=== PATIENT | male | born 1955 | race Caucasian/White ===

== ENCOUNTER 2018-04-05 09:27 | Observation (INO) | payer BC ==
[2018-04-05 10:06] LABS: Basophils % (A) 0 %; Eosinophils # (A) 0.2 k/uL (0-0.7); Eosinophils % (A) 3 %; HCT 50.8 % (39.0-53.0); HGB 17.3 gm/dL (13.0-17.5); Lymphocytes # (A) 1.4 k/uL (1.0-4.8); Lymphocytes % (A) 20 %; MCH 31.8 pg (25.0-35.0); MCV 93.6 fL (80.0-100.0); Mean Platelet Volume 8.1; Monocytes # (A) 0.5 k/uL (0-1.0); Monocytes % (A) 7 %; Neutrophils # (A) 4.7 k/uL (1.3-7.7); Neutrophils % (A) 68 %; Platelet Count 178 k/uL (150-450); RBC 5.43 m/uL (4.30-5.90); RDW 13.1 % (11.5-15.5); WBC 6.9 k/uL (3.8-10.6)
[2018-04-05] MEDS ORDERED: IPRATROPIUM-ALBUTEROL 3 ML NEB INHALATION STA (10:11)
[2018-04-05 10:15] LABS: ALT 89 U/L (21-72); AST 66 U/L (17-59); Albumin 4.5 g/dL (3.5-5.0); Alkaline Phosphatase 65 U/L (38-126); Anion Gap 9 mmol/L; Blood Urea Nitrogen 5 mg/dL (9-20); Calcium 9.3 mg/dL (8.4-10.2); Carbon Dioxide 26 mmol/L (22-30); Chloride 106 mmol/L (98-107); Glucose 106 mg/dL (74-99); Sodium 141 mmol/L (137-145); Total Bilirubin 1.2 mg/dL (0.2-1.3); Total Protein 7.8 g/dL (6.3-8.2)
--- NOTE | 2018-04-05 10:25 | ED ---
Chest Pain HPI - General Chief Complaint: Chest Pain Stated Complaint: chest pain, abnormal ekg Time Seen by Provider: 04/05/18 09:43 Source: patient, RN notes reviewed Mode of arrival: ambulatory Limitations: no limitations - History of Present Illness Initial Comments: This a 62-year-old male with a history of COPD who is a 1 pack-a-day smoker who was sent here for evaluation because of an abnormal EKG. Patient states he's been having sharp chest pain 8/10 severity increases with deep breathing and certain movements no cough no fevers chills nausea vomiting sweats or other symptoms. He was seen in his doctor's office and sent here again for evaluation. He was given 4 baby aspirin is at 905 this morning in the office. MD Complaint: chest pain, other - Related Data Home Medications Medication Instructions Recorded Confirmed Aspirin EC [Ecotrin] 325 mg PO DAILY PRN 04/05/18 04/05/18 Allergies Allergy/AdvReac Type Severity Reaction Status Date / Time Penicillins Allergy Unknown Verified 04/05/18 10:08 Childhood Review of Systems ROS Statement: Those systems with pertinent positive or pertinent negative responses have been documented in the HPI. ROS Other: All systems not noted in ROS Statement are negative. EKG Findings - EKG Results: EKG: interpreted by KIRA, sinus rhythm (Sinus rhythm of 93. Interval 150 QRS duration 92 QT since QTC 356/442 this compares with the EKG submitted from the patient's physician office.) Past Medical History Past Medical History: COPD History of Any Multi-Drug Resistant Organisms: None Reported Additional Past Surgical History / Comment(s): LEFT ARM SURGICAL DEBRIDEMENT 08/18 FROM SANDBLASTING INJURY Past Anesthesia/Blood Transfusion Reactions: No Reported Reaction Past Psychological History: No Psychological Hx Reported Smoking Status: Current every day smoker Past Alcohol Use History: Daily Past Drug Use History: None Reported - Past Family History Mother Family Medical History: Hypertension Father Family Medical History: Coronary Artery Disease (CAD) General Exam - General Exam Comments Initial Comments: This is a well little pulmonary awake alert oriented 3 male Limitations: no limitations General appearance: alert, in no apparent distress Head exam: Present: atraumatic, normocephalic, normal inspection Eye exam: Present: normal appearance, PERRL, EOMI. Absent: scleral icterus, conjunctival injection, periorbital swelling ENT exam: Present: normal exam, mucous membranes moist Neck exam: Present: normal inspection, full ROM, other (No stridor JVD or bruits ). Absent: tenderness, meningismus, lymphadenopathy Respiratory exam: Present: wheezes, decreased breath sounds. Absent: respiratory distress, rales, rhonchi, stridor, chest wall tenderness Cardiovascular Exam: Present: regular rate, normal rhythm, normal heart sounds. Absent: systolic murmur, diastolic murmur, rubs, gallop, clicks GI/Abdominal exam: Present: soft, normal bowel sounds. Absent: distended, tenderness, guarding, rebound, rigid Extremities exam: Present: normal inspection, full ROM, normal capillary refill. Absent: tenderness, pedal edema, joint swelling, calf tenderness Back exam: Present: normal inspection Neurological exam: Present: alert, oriented X3, CN II-XII intact Psychiatric exam: Present: normal affect, normal mood Skin exam: Present: warm, dry, intact, normal color. Absent: rash Course Vital Signs 04/05/18 04/05/18 04/05/18 09:29 09:42 09:50 Temperature 98.3 F Pulse Rate 109 H 86 Respiratory 20 Rate Blood Pressure 167/104 155/92 O2 Sat by Pulse 99 95 93 L Oximetry 04/05/18 04/05/18 04/05/18 10:36 10:47 11:00 Temperature Pulse Rate 70 90 90 Respiratory 18 Rate Blood Pressure 133/95 O2 Sat by Pulse 97 Oximetry 04/05/18 04/05/18 04/05/18 12:00 12:11 13:00 Temperature Pulse Rate 81 80 77 Respiratory 16 18 16 Rate Blood Pressure 143/80 130/81 140/86 O2 Sat by Pulse 96 96 95 Oximetry 04/05/18 13:50 Temperature Pulse Rate 79 Respiratory 16 Rate Blood Pressure 143/87 O2 Sat by Pulse 95 Oximetry - Reevaluation(s) Reevaluation #1: 04/05/18 14:11 (Some relief from nitroglycerin. He started having increasing pain he repeat EKG was performed which showed sinus rhythm with PACs rate was 83 para 140 QRS duration 98 QT since QTC 396/465 Chest Pain [facility] - [facility] The patient's x-ray was reviewed no acute findings seen. The patient persisted having chest pain that seemed to prove after nitroglycerin. Patient will be admitted for inpatient treatment. I did discuss case with Dr. Portillo Critical Care Time Critical Care Time: Yes Critical Care Time: 31 minutes critical care time which includes initial presentation with history physical labs x-rays reevaluation patient responsive therapy discuss with the admitting physician admission orders and documentation of the above Disposition Clinical Impression: Unstable angina pectoris, Chest pain Disposition: ADMITTED IP TO THIS [facility] Condition: Stable Referrals: Raffy Mcfadden MD [Primary Care Provider] - 1-2 days
[2018-04-05 10:26] LABS: Partial Thromboplastin Time 24.5 sec (22.0-30.0)
--- NOTE | 2018-04-05 10:26 | XR ---
EXAMINATION TYPE: XR chest 2V DATE OF EXAM: 04/05/2018 COMPARISON: None INDICATION: Chest pain TECHNIQUE: Frontal and lateral views of the chest are obtained. FINDINGS: The heart size is normal. The pulmonary vasculature is normal. There are multiple scattered nodularities the bilateral lung campa. Granuloma could be considered. O ther etiologies including infectious etiologies, and metastatic disease could be considered. Consider CT chest for additional evaluation.. IMPRESSION: 1. No acute process identified. 2. Multiple subcentimeter nodularities in the bilateral lung campa. Consider follow-up CT chest for additional evaluation. Differential diagnosis is discussed above.
[2018-04-05 10:31] LABS: D-Dimer 0.93 mg/L FEU (<0.60)
[2018-04-05 10:35] LABS: Creatine Kinase 49 U/L (55-170)
[2018-04-05 10:48] LABS: Creatine Kinase MB <0.2 ng/mL (0.0-2.4); Troponin I <0.012 ng/mL (0.000-0.034)
--- NOTE | 2018-04-05 12:15 | CT ---
EXAMINATION TYPE: CT angio chest DATE OF EXAM: 04/05/2018 COMPARISON: NONE HISTORY: Chest pain CT DLP: 409.3 mGycm. Automated Exposure Control for Dose Reduction was Utilized. CONTRAST: CTA scan of the thorax is performed with IV Contrast, patient injected with 100 mL of Isovue 370, pul monary embolism protocol. MIP Images are created on CT scanner and reviewed. FINDINGS: LUNGS: There are innumerable punctate calcified pulmonary nodules throughout the lungs without solid component. The lungs are grossly clear, there is no concerning parenchymal mass or nodule identified. Mild emphysematous changes are present. There is no pleural effusion or pneumothorax seen. The tr acheobronchial tree is patent. MEDIASTINUM: There is suboptimal enhancement of the pulmonary artery and its branches, however there is no CT evidence for main pulmonary artery or segmental pulmonary embolism. There is no evidence of thoracic aortic aneurysm as the ascending thoracic aorta measures 3.8 cm. No evidence of thoracic aor tic dissection however there are numerous penetrating atheromatous ulcers within the aortic arch and descending thoracic aorta. There is aneurysmal dilatation of the aortic root measuring 4.4 cm on sagi ttal series 402 image 70. Mild coronary artery calcifications are seen There are no greater than 1 cm hilar or mediastinal lymph nodes. Calcified additional lymph nodes are seen. No cardiomegaly or pe ricardial effusion is seen. OTHER: Evaluation of the abdominal viscera is limited secondary to the angiographic phase of contrast . Benign splenic granulomas are seen. Moderate multilevel degenerative changes of the spine are prese nt. IMPRESSION: 1. Overall there is suboptimal opacification of the main pulmonary artery there is no evidence of brock tral or segmental pulmonary embolus. No evidence of thoracic aortic aneurysm or dissection. Multiple penetrating atheromatous ulcers are seen of the descending thoracic aorta and aortic arch due to nonc alcific atheromatous plaquing. 2. Innumerable calcified pulmonary nodules are likely on the basis of benign granulomatous change alt gloria could be seen in other calcified etiologies such as prior varicella pneumonia. 3. Aortic root aneurysmal dilatation measuring up to 4.4 cm. 4. Mild pulmonary emphysema.
[2018-04-05] MEDS ORDERED: NITROGLYCERIN SL TABS 0.4 MG TAB SUBLINGUAL STA (12:56)
[2018-04-05] MEDS ORDERED: HEPARIN SODIUM,PORCINE 5,000 UNIT/ML 1 ML VIAL IV ONE (14:08)
[2018-04-05] MEDS ORDERED: NITROGLYCERIN SL TABS 0.4 MG TAB SUBLINGUAL PRN (14:08)
[2018-04-05] MEDS ORDERED: HEPARIN SOD,PORK IN 0.45% NACL 25,000 UNIT in 0.45% NACL 1 250ML.BAG IV SCH (14:15)
[2018-04-05] MEDS ORDERED: SODIUM CHLORIDE 0.9% 1,000 ML IV SCH (14:15)
[2018-04-05] MEDS: NITROGLYCERIN OINT 1 INCH/GM PACKET TOPICAL SCH ×2 (15:00→23:10)
[2018-04-05] MEDS ORDERED: ACETAMINOPHEN TAB 325 MG TAB PO PRN (15:12)
[2018-04-05] MEDS ORDERED: amLODIPine 10 MG TAB PO STA (15:14)
[2018-04-05 15:26] VITALS: BMI 30.2
--- NOTE | 2018-04-05 15:28 | P.HPIM ---
History of Present Illness H&P Date: 04/05/18 Chief Complaint: Chest pain The patient is a pleasant 62-year-old male the past with a history of COPD with ongoing tobacco use that presents to the ER via private vehicle with chief complaint of chest pain. Apparently the patient's symptoms began yesterday with discomfort in the epigastric area and substernally rated as severe associated shortness of breath and worsened by taking deep breaths, the patient also reports is worsened by certain movements like going from a recumbent to sitting up position, other than shortness of breath the patient has no associated nausea vomiting, or diaphoresis, palpitations, or lower extremity swelling. The patient reports a chronic cough and wheezes which he attributes to his COPD. The patient presented to his PCPs office with the above complaints was given 4 baby aspirin and referred to the ER. Patient reports that his symptoms started like when he has acid reflux flares but has since persisted. This patient also denies any specific correlation with the symptoms with exertion or food. The patient does report to drinking approximately 8 beers daily but denies any hard core liquor use. Patient denies any history of hypertension but reports that his diastolic Bp is usually running around 90, denies previous being on any blood pressure medications. In the ER the patient had a comprehensive workup he was given nitroglycerin but denies any improvement in symptoms, and started on a heparin drip. His EKG showed sinus mechanism without any suggestion of acute ischemia as troponins was negative. His d-dimer was elevated and subsequent CTA of the chest was negative for PE, but was consistent with multiple calcified pulmonary nodules. Review of Systems Pertinent positives per HPI all other systems are otherwise negative Past Medical History Past Medical History: COPD History of Any Multi-Drug Resistant Organisms: None Reported Additional Past Surgical History / Comment(s): LEFT ARM SURGICAL DEBRIDEMENT 08/18 FROM SANDBLASTING INJURY Past Anesthesia/Blood Transfusion Reactions: No Reported Reaction Past Psychological History: No Psychological Hx Reported Smoking Status: Current every day smoker Past Alcohol Use History: Daily Past Drug Use History: None Reported - Past Family History Mother Family Medical History: Hypertension Father Family Medical History: Coronary Artery Disease (CAD) Medications and Allergies Home Medications Medication Instructions Recorded Confirmed Type Aspirin EC [Ecotrin] 325 mg PO DAILY PRN 04/05/18 04/05/18 History Allergies Allergy/AdvReac Type Severity Reaction Status Date / Time Penicillins Allergy Unknown Verified 04/05/18 10:08 Childhood Physical Exam Vitals: Vital Signs Temp Pulse Resp BP Pulse Ox 04/05/18 13:50 79 16 143/87 95 04/05/18 13:00 77 16 140/86 95 04/05/18 12:11 80 18 130/81 96 04/05/18 12:00 81 16 143/80 96 04/05/18 11:00 90 18 133/95 97 04/05/18 10:47 90 04/05/18 10:36 70 04/05/18 09:50 86 155/92 93 L 04/05/18 09:42 95 04/05/18 09:29 98.3 F 109 H 20 167/104 99 Intake and Output 04/05/18 04/05/18 04/05/18 06:59 14:59 22:59 Other: Weight 92.986 kg Constitutional: No acute distress, conversant, pleasant Eyes: Anicteric sclerae, moist conjunctiva, no lid-lag, PERRLA ENMT: NC/AT,Oropharynx clear, no erythema, exudates Neck:Supple, FROM, no masses, or JVD, No carotid bruits; No thyromegaly Lungs: Clear to auscultation, Clear to percussion, Normal respiratory effort, no accessory muscle use Cardiovascular: Heart regular in rate and rhythm, No murmurs, gallops, or rubs no peripheral edema Abdominal: Soft Nontender, nom distended, no guarding, no rebound or rigidity, Normoactive bowel sounds No hepatomegaly, No splenomegaly, No palpable mass No abdominal wall hernia noted Skin: Normal temperature, tone, texture, turgor, No induration No subcutaneous nodules, No rash, lesions, No ulcers Extremities:No digital cyanosis No clubbing, Pedal pulses intact and symmetrical Radial pulses intact and symmetrical Normal gait and station, No calf tenderness Psychiatric: Alert and oriented to person, place and time, Appropriate affect Intact judgement Neuro: Muscles Strength 5/5 in all 4 extremities, Sensation to light touch grossly present throughout, Cranial nerves II-XII grossly intact. No focal sensory deficits Results CBC & Chem 7: 04/05/18 09:42 04/05/18 09:42 Labs: Abnormal Lab Results - Last 24 Hours (Table) 04/05/18 04/05/18 04/05/18 Range/Units 09:42 09:42 09:42 D-Dimer 0.93 H (<0.60) mg/L FEU BUN 5 L (9-20) mg/dL Glucose 106 H (74-99) mg/dL AST 66 H (17-59) U/L ALT 89 H (21-72) U/L Total Creatine Kinase 49 L (55-170) U/L Assessment and Plan (1) Atypical chest pain Current Visit: Yes Status: Acute Code(s): R07.89 - OTHER CHEST PAIN SNOMED Code(s): 337334661 (2) Essential hypertension Current Visit: Yes Status: Acute Code(s): I10 - ESSENTIAL (PRIMARY) HYPERTENSION SNOMED Code(s): 03959331 (3) COPD (chronic obstructive pulmonary disease) Current Visit: Yes Status: Acute Code(s): J44.9 - CHRONIC OBSTRUCTIVE PULMONARY DISEASE, UNSPECIFIED SNOMED Code(s): 30359306 (4) Smoker Current Visit: Yes Status: Acute Code(s): F17.200 - NICOTINE DEPENDENCE, UNSPECIFIED, UNCOMPLICATED SNOMED Code(s): 86185753 (5) Transaminitis Current Visit: Yes Status: Acute Code(s): R74.0 - NONSPEC ELEV OF LEVELS OF TRANSAMNS & LACTIC ACID DEHYDRGNSE SNOMED Code(s): 788030333 (6) Alcohol dependence Current Visit: Yes Status: Acute Code(s): F10.20 - ALCOHOL DEPENDENCE, UNCOMPLICATED SNOMED Code(s): 43369266 (7) Pulmonary nodules/lesions, multiple Current Visit: Yes Status: Acute Code(s): R91.8 - OTHER NONSPECIFIC ABNORMAL FINDING OF LUNG FIELD SNOMED Code(s): 328842206 Plan: Patient is placed on observation anticipated less than 2 midnight stay with atypical chest pain EKG showing sinus mechanism without any signs of acute ischemia troponin was negative trend troponins and continue routine chest pain orders the patient is continued on aspirin and heparin drip initiated on metoprolol and lisinopril to control his blood pressure. 2-D echocardiogram has been ordered with plans for cardiology consultation. The patient noted to have a mild transaminitis, hepatitis panel and right upper quadrant ultrasound ordered, likely has alcoholic hepatitis versus fatty liver we'll follow-up ultrasound and recommendations from cardiology and pulmonology. We will continue to follow his clinical course CODE STATUS Full code Anticipated discharge: 1-2 days Prophylaxis: Heparin drip/ Protonix
[2018-04-05 17:27] LABS: Creatine Kinase 40 U/L (55-170)
[2018-04-05 17:40] LABS: Creatine Kinase MB <0.2 ng/mL (0.0-2.4); Troponin I <0.012 ng/mL (0.000-0.034)
[2018-04-05] MEDS ORDERED: METOPROLOL TARTRATE 25 MG TAB PO SCH (21:00)
[2018-04-05 21:25] LABS: Creatine Kinase 39 U/L (55-170)
[2018-04-05 21:37] LABS: Creatine Kinase MB <0.2 ng/mL (0.0-2.4); Troponin I <0.012 ng/mL (0.000-0.034)
[2018-04-05] MEDS ORDERED: HEPARIN SODIUM,PORCINE 5,000 UNIT/ML 1 ML VIAL IV PRN (22:37)
[2018-04-06 06:10] LABS: Cholesterol 142 mg/dL (<200); HDL Cholesterol 50 mg/dL (40-60); LDL Cholesterol,Calculated 73 mg/dL (0-99); Triglycerides 93 mg/dL (<150)
[2018-04-06] MEDS: NITROGLYCERIN OINT 1 INCH/GM PACKET TOPICAL SCH (06:15)
--- NOTE | 2018-04-06 07:38 | US ---
EXAMINATION TYPE: US abdomen limited DATE OF EXAM: 04/06/2018 COMPARISON: CT angio chest CLINICAL HISTORY: Pain r/o acute cholecystitis/high LFTs. Patient stated had chest pains EXAM MEASUREMENTS: Liver Length: 18.4 cm Gallbladder Wall: 0.2 cm CBD: 0.4 cm Right Kidney: 10.3 x 5.4 x 4.7 cm Pancreas: wnl Liver: hyperechoic to right renal cortex suggests fatty liver Gallbladder: wnl Evidence for sonographic Peters's sign: no CBD: wnl Right Kidney: wnl IMPRESSION: 1. Hepatic steatosis.
[2018-04-06] MEDS ORDERED: AZITHROMYCIN 500 MG TAB PO SCH (09:00)
[2018-04-06] MEDS ORDERED: ASPIRIN 325 MG TAB PO SCH (09:00)
[2018-04-06] MEDS ORDERED: LISINOPRIL 10 MG TAB PO SCH (09:00)
--- NOTE | 2018-04-06 09:55 | P.CNPUL ---
History of Present Illness Consult date: 04/06/18 Requesting physician: Vickie Portillo Reason for consult: dyspnea, chest pain Chief complaint: Chest pain, mild dyspnea History of present illness: This is 62-year-old white male patient of Dr. Mcfadden, was presented to the emergency department on 04/05/2018, with past medical history of COPD, not oxygen dependent at baseline, hypertention, chronic nicotine dependence. Patient is complaining of pressure-like chest discomfort across has sternum, patient did have some mild shortness of breath, not associated with nausea, vomiting, diaphoresis. No lightheadedness, no palpitations. The chest discomfort was described as pressure, 8 out of 10, and was more towards the right side Of the sternum. It was worse with lying on the left side, and coughing and deep breathing. Denied any fever or chills. No cough or chest congestion. He does not see a online marketing specialist, he used to have an inhaler , he does not recall the name. He was told in the past she had COPD. 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 On presentation to the emergency department she was given 4 baby aspirins, and a sublingual nitro with no improvement of his symptoms. States his chest discomfort lasted for a whole day, constant in nature. Denies any history of prior myocardial infarction, no history of diabetes, no hyperlipidemia. Chest x-ray did not show any acute process, which showed multiple subcentimeter nodularities in the bilateral lung campa. CT angios chest was negative for any acute pulmonary embolism, it showed numerous punctate calcified pulmonary nodules throughout the lungs without solid component. Mild emphysematous changes were seen. There were no greater than 1 cm hilar or mediastinal lymph nodes, and calcified additional lymph nodes were seen within the mediastinum. There was aortic root aneurysmal dilatation measuring up to 4.4 cm. EKG showed normal sinus rhythm without acute ischemic changes. Troponins were negative 3, there was no evidence of leukocytosis, electrolytes and renal profile were unremarkable, proBNP was within normal limits at 52. The rest to see this patient in evaluation for multiple calcified nodules seen in bilateral lungs on CTA chest. Review of Systems All systems: negative Constitutional: Denies chills, Denies fever Eyes: denies blurred vision, denies pain Ears, nose, mouth and throat: Denies headache, Denies sore throat Cardiovascular: Reports chest pain, Denies shortness of breath Respiratory: Denies cough Gastrointestinal: Denies abdominal pain, Denies diarrhea, Denies nausea, Denies vomiting Musculoskeletal: Denies myalgias Integumentary: Denies pruritus, Denies rash Neurological: Denies numbness, Denies weakness Psychiatric: Denies anxiety, Denies depression Endocrine: Denies fatigue, Denies weight change Past Medical History Past Medical History: COPD Additional Past Medical History / Comment(s): asthma as child History of Any Multi-Drug Resistant Organisms: None Reported Additional Past Surgical History / Comment(s): LEFT ARM SURGICAL DEBRIDEMENT 08/18 FROM SANDBLASTING INJURY Past Anesthesia/Blood Transfusion Reactions: No Reported Reaction Past Psychological History: No Psychological Hx Reported Smoking Status: Current every day smoker Past Alcohol Use History: Daily Past Drug Use History: None Reported - Past Family History Mother Family Medical History: Hypertension Father Family Medical History: Coronary Artery Disease (CAD) Medications and Allergies Home Medications Medication Instructions Recorded Confirmed Type Aspirin EC [Ecotrin] 325 mg PO DAILY PRN 04/05/18 04/05/18 History Allergies Allergy/AdvReac Type Severity Reaction Status Date / Time Penicillins Allergy Unknown Verified 04/05/18 10:08 Childhood Physical Exam Vitals: Vital Signs Temp Pulse Pulse Pulse Resp BP BP 04/06/18 08:00 97.8 F 69 16 131/79 04/06/18 03:44 98.2 F 74 18 131/72 04/06/18 03:13 18 04/06/18 00:00 97.8 F 75 18 151/84 04/05/18 20:00 98.7 F 79 16 163/92 04/05/18 19:46 04/05/18 16:00 98.5 F 88 16 155/91 04/05/18 15:30 98.0 F 87 18 151/86 04/05/18 15:00 97.8 F 80 18 151/88 04/05/18 14:10 79 152/95 04/05/18 14:08 04/05/18 14:00 77 16 143/87 04/05/18 13:50 79 16 143/87 04/05/18 13:00 77 16 140/86 04/05/18 12:11 80 18 130/81 04/05/18 12:00 81 16 143/80 04/05/18 11:00 90 18 133/95 04/05/18 10:47 90 04/05/18 10:36 70 04/05/18 09:50 86 155/92 04/05/18 09:42 04/05/18 09:29 98.3 F 109 H 20 167/104 Pulse Ox 04/06/18 08:00 94 L 04/06/18 03:44 92 L 04/06/18 03:13 04/06/18 00:00 95 04/05/18 20:00 95 04/05/18 19:46 96 04/05/18 16:00 96 04/05/18 15:30 96 04/05/18 15:00 04/05/18 14:10 04/05/18 14:08 96 04/05/18 14:00 04/05/18 13:50 95 04/05/18 13:00 95 04/05/18 12:11 96 04/05/18 12:00 96 04/05/18 11:00 97 04/05/18 10:47 04/05/18 10:36 04/05/18 09:50 93 L 04/05/18 09:42 95 04/05/18 09:29 99 Intake and Output 04/05/18 04/06/18 04/06/18 22:59 06:59 14:59 Intake Total 78.667 Balance 78.667 Intake: Intake, IV Titration 78.667 Amount Heparin Sod,Pork in 0.45% 78.667 NaCl 25,000 unit In 0.45 % NaCl 1 250ml.bag @ 10. 755 UNITS/KG/HR 10 mls/hr IV .Q24H [facility] Rx#: [id number] Other: Voiding Method Toilet Toilet Toilet # Voids 1 2 GENERAL EXAM: Alert, pleasant, 62-year-old white male comfortable in no apparent distress. HEAD: Normocephalic/atraumatic. EYES: Normal reaction of pupils, equal size. Conjunctiva pink, sclera white. NOSE: Clear with pink turbinates. THROAT: No erythema or exudates. NECK: No masses, no JVD, no thyroid enlargement, no adenopathy. CHEST: No chest wall deformity. Symmetrical expansion. LUNGS: Equal air entry diffuse wheezes noted bilaterally CVS: Regular rate and rhythm, normal S1 and S2, no gallops, no murmurs, no rubs ABDOMEN: Soft, nontender. No hepatosplenomegaly, normal bowel sounds, no guarding or rigidity. EXTREMITIES: No clubbing, no edema, no cyanosis, 2+ pulses and upper and lower extremities. MUSCULOSKELETAL: Muscle strength and tone normal. SPINE: No scoliosis or deformity SKIN: No rashes CENTRAL NERVOUS SYSTEM: Alert and oriented -3. No focal deficits, tone is normal in all 4 extremities. PSYCHIATRIC: Alert and oriented -3. Appropriate affect. Intact judgment and insight. Results - Laboratory Findings CBC and BMP: 04/05/18 09:42 04/05/18 09:42 PT/INR, D-dimer PT 11.0 sec (9.0-12.0) 04/05/18 09:42 INR 1.0 (<1.2) 04/05/18 09:42 D-Dimer 0.93 mg/L FEU (<0.60) H 04/05/18 09:42 Abnormal lab findings: Abnormal Labs 04/05/18 04/05/18 04/05/18 09:42 09:42 09:42 APTT D-Dimer 0.93 H BUN 5 L Glucose 106 H AST 66 H ALT 89 H Total Creatine Kinase 49 L 04/05/18 04/05/18 04/05/18 16:25 20:59 20:59 APTT 33.8 H D-Dimer BUN Glucose AST ALT Total Creatine Kinase 40 L 39 L 04/06/18 05:29 APTT 60.5 H D-Dimer BUN Glucose AST ALT Total Creatine Kinase - Diagnostic Findings Chest x-ray: report reviewed, image reviewed CT scan - chest: report reviewed, image reviewed Assessment and Plan Plan: Assessment: #1. Pressure-like chest pain, exacerbated by deep breathing, and position. EKG was without any ischemic changes, serial cardiac enzymes were negative 3. Patient is awaiting evaluation by cardiology #2. Multiple calcified pulmonary nodules seen and bilateral lungs on the CTA chest, likely related to an old granulomatous disease #3. Acute exacerbation of chronic obstructive pulmonary disease #4. COPD, severity of which is unknown at this time, not oxygen dependent at this time #5. Elevated liver enzymes, ultrasound of the abdomen showed hepatic steatosis #6. Hypertension #7. Nicotine dependence, chronic and ongoing, carries 15-spam-xyea smoking history Plan: Patient is quite bronchospastic on today's exam, chest x-ray was negative for any acute process. CT changes chest was reviewed with Dr. Stone, showed multiple calcified pulmonary nodules likely related to an old granulomatous disease, not currently active. We'll treat the patient for acute exacerbation of COPD, added IV steroids, nebulized bronchodilators, and Zithromax. Patient is awaiting evaluation by cardiology. His chest pain has subsided, but has not resolved yet. We'll continue to follow I performed a history & physical examination of the patient and discussed their management with my nurse practitioner, Ariella Skinner. I reviewed the nurse practitioner's note and agree with the documented findings and plan of care. Lung sounds are positive for diffuse wheezes throughout the lung campa. The findings and the impression was discussed with the patient. I attest to the documentation by the nurse practitioner. Time with Patient: Greater than 30
--- NOTE | 2018-04-06 10:16 | P.CRDCN ---
History of Present Illness History of present illness: This is a pleasant 62-year-old male past medical history significant for COPD, chronic nicotine dependence and daily alcohol use. He denies history of coronary artery disease, hypertension and dyslipidemia and has never followed with a javascript engineer for any reason. We have been asked to see him in consultation for chest pain. He complains of a constant heavy burning sensation in the right anterior chest wall. He states this pain initially started while he was sitting down in his living room watching television and drinking a beer. The pain started all of a sudden and has been consistent for approximately 24 hours. The pain is worse when he takes in a deep breath or when he coughs excessively. He states he has a chronic daily dry cough for many years thought to be secondary to smoking. There has been no change in his cough recently. He denies associated shortness of breath, dizziness or palpitations. The pain does not radiate to the arm, back, neck or jaw. He initially presented to his primary care physician's office with these complaints and was sent to the hospital for further evaluation. EKG on arrival reveals sinus mechanism with no acute ST or T wave abnormalities noted. Repeat EKG reveals sinus mechanism with PACs. Chest x-ray is negative for acute cardiopulmonary process with multiple nodularities in the bilateral lung campa. CT chest obtained revealed no evidence of central or segmental PE, no evidence of thoracic aortic aneurysm or dissection, multiple penetrating at the time of ulcers of the descending thoracic aorta and aortic arch, innumerable calcific pulmonary nodules thought to be on the basis of benign granulomatous change although could be related to prior variceal pneumonia, aortic root aneurysmal dilatation measuring 4.4 cm mild pulmonary emphysema. Laboratory data reviewed, WBC 6.9, hemoglobin 17.3, d-dimer 0.93, sodium 141, potassium 5, creatinine 0.8, magnesium 1.2, AST 66 ALT 89, cardiac enzymes negative 3, LDL 73, HDL 50 and 90 proBNP 52. Blood pressures have been elevated since admission he has been started on lisinopril 10 mg daily. His chest pain has resolved since admission. He has also been seen by pulmonology and started on IV steroids, PO antibiotics and duoneb. At the time of my exam: CONSTITUTIONAL: Denies fever. Denies chills. EYES: Denies blurred vision. Denies vision changes. Denies eye pain. EARS, NOSE, MOUTH & THROAT: Denies headache. Denies sore throat. Denies ear pain. CARDIOVASCULAR: Denies chest pain. Denies shortness of breath. Denies orthopnea. Denies PND. Denies palpitations. RESPIRATORY: Denies cough. GASTROINTESTINAL: Denies abdominal pain. Denies diarrhea. Denies constipation. Denies nausea. Denies vomiting. MUSCULOSKELETAL: Denies myalgias. INTEGUMENTARY: Denies pruitis. Denies rash. NEUROLOGIC: Denies numbness. Denies tingling. Denies weakness. PSYCHIATRIC: Denies anxiety. Denies depression. ENDOCRINE: Denies fatigue. Denies weight change. Denies polydipsia. Denies polyurina. GENITOURINARY: Denies burning, hematuria or urgency with micturation. HEMATOLOGIC: Denies history of anemia. Denies bleeding. Blood pressure 131/70 heart rate 69 afebrile maintaining oxygen saturation on room air GENERAL: This is a 62-year-old male in no apparent distress at the time of my examination. HEENT: Head is atraumatic, normocephalic. Pupils are equal, round. Sclerae anicteric. Conjunctivae are clear. Mucous membranes of the mouth are moist. Neck is supple. There is no jugular venous distention. No carotid bruit is heard. LUNGS: Expiratory wheezes with mild rhonchi noted throughout. No rales. No chest wall tenderness is noted on palpation or with deep breathing. HEART: Regular rate and rhythm without murmurs, rubs or gallops. S1 and S2 heard. ABDOMEN: Soft, nontender. Bowel sounds are heard. No organomegaly noted. EXTREMITIES: No evidence of peripheral edema and no calf tenderness noted. VASCULAR: Radial and dorsalis pedis pulses palpated, no evidence of clubbing. NEUROLOGIC: Patient is awake, alert and oriented x3. ASSESSMENT Pleuritic chest pain, atypical for angina. An acute coronary event has been ruled out. Hypertension COPD Chronic nicotine use Daily alcohol use PLAN Pain atypical for angina, an acute coronary event has been ruled out. Echocardiogram has been obtained and will be reviewed. Ongoing management of COPD exacerbation by pulmonary care team. Check TSH. Smoking and alcohol cessation recommended. Will pursue further cardiac evaluation as an outpatient when his breathing and COPD has improved. Follow up in the office with Dr. Valles in 2 weeks. Thank you kindly for this consultation. Nurse Practitioner note has been reviewed, I agree with a documented findings and plan of care. Patient was seen and examined. Past Medical History Past Medical History: COPD Additional Past Medical History / Comment(s): asthma as child History of Any Multi-Drug Resistant Organisms: None Reported Additional Past Surgical History / Comment(s): LEFT ARM SURGICAL DEBRIDEMENT 08/18 FROM SANDBLASTING INJURY Past Anesthesia/Blood Transfusion Reactions: No Reported Reaction Past Psychological History: No Psychological Hx Reported Smoking Status: Current every day smoker Past Alcohol Use History: Daily Past Drug Use History: None Reported - Past Family History Mother Family Medical History: Hypertension Father Family Medical History: Coronary Artery Disease (CAD) Medications and Allergies Home Medications Medication Instructions Recorded Confirmed Type Aspirin EC [Ecotrin] 325 mg PO DAILY PRN 04/05/18 04/05/18 History Allergies Allergy/AdvReac Type Severity Reaction Status Date / Time Penicillins Allergy Unknown Verified 04/05/18 10:08 Childhood Physical Exam Vitals: Vital Signs Temp Pulse Pulse Pulse Resp BP BP 04/06/18 03:44 98.2 F 74 18 131/72 04/06/18 03:13 18 04/06/18 00:00 97.8 F 75 18 151/84 04/05/18 20:00 98.7 F 79 16 163/92 04/05/18 19:46 04/05/18 16:00 98.5 F 88 16 155/91 04/05/18 15:30 98.0 F 87 18 151/86 04/05/18 15:00 97.8 F 80 18 151/88 04/05/18 14:10 79 152/95 04/05/18 14:08 04/05/18 14:00 77 16 143/87 04/05/18 13:50 79 16 143/87 04/05/18 13:00 77 16 140/86 04/05/18 12:11 80 18 130/81 04/05/18 12:00 81 16 143/80 04/05/18 11:00 90 18 133/95 04/05/18 10:47 90 04/05/18 10:36 70 04/05/18 09:50 86 155/92 04/05/18 09:42 04/05/18 09:29 98.3 F 109 H 20 167/104 Pulse Ox 04/06/18 03:44 92 L 04/06/18 03:13 04/06/18 00:00 95 04/05/18 20:00 95 04/05/18 19:46 96 04/05/18 16:00 96 04/05/18 15:30 96 04/05/18 15:00 04/05/18 14:10 04/05/18 14:08 96 04/05/18 14:00 04/05/18 13:50 95 04/05/18 13:00 95 04/05/18 12:11 96 04/05/18 12:00 96 04/05/18 11:00 97 04/05/18 10:47 04/05/18 10:36 04/05/18 09:50 93 L 04/05/18 09:42 95 04/05/18 09:29 99 Intake and Output 04/05/18 04/06/18 04/06/18 22:59 06:59 14:59 Intake Total 78.667 Balance 78.667 Intake: Intake, IV Titration 78.667 Amount Heparin Sod,Pork in 0.45% 78.667 NaCl 25,000 unit In 0.45 % NaCl 1 250ml.bag @ 10. 755 UNITS/KG/HR 10 mls/hr IV .Q24H [facility] Rx#: [id number] Other: Voiding Method Toilet Toilet # Voids 1 2 Results 04/05/18 09:42 04/05/18 09:42 Cardiac Enzymes 04/05/18 04/05/18 04/05/18 Range/Units 09:42 09:42 16:25 AST 66 H (17-59) U/L CK-MB (CK-2) <0.2 <0.2 (0.0-2.4) ng/mL Troponin I <0.012 <0.012 (0.000-0.034) ng/mL 04/05/18 Range/Units 20:59 AST (17-59) U/L CK-MB (CK-2) <0.2 (0.0-2.4) ng/mL Troponin I <0.012 (0.000-0.034) ng/mL Coagulation 04/05/18 04/05/18 04/06/18 Range/Units 09:42 20:59 05:29 PT 11.0 (9.0-12.0) sec APTT 24.5 33.8 H 60.5 H (22.0-30.0) sec Lipids 04/06/18 Range/Units 05:29 Triglycerides 93 (<150) mg/dL Cholesterol 142 (<200) mg/dL HDL Cholesterol 50 (40-60) mg/dL CBC 04/05/18 Range/Units 09:42 WBC 6.9 (3.8-10.6) k/uL RBC 5.43 (4.30-5.90) m/uL Hgb 17.3 (13.0-17.5) gm/dL Hct 50.8 (39.0-53.0) % Plt Count 178 (150-450) k/uL Comprehensive Metabolic Panel 04/05/18 Range/Units 09:42 Sodium 141 (137-145) mmol/L Potassium 5.0 (3.5-5.1) mmol/L Chloride 106 (98-107) mmol/L Carbon Dioxide 26 (22-30) mmol/L BUN 5 L (9-20) mg/dL Creatinine 0.80 (0.66-1.25) mg/dL Glucose 106 H (74-99) mg/dL Calcium 9.3 (8.4-10.2) mg/dL AST 66 H (17-59) U/L ALT 89 H (21-72) U/L Alkaline Phosphatase 65 (38-126) U/L Total Protein 7.8 (6.3-8.2) g/dL Albumin 4.5 (3.5-5.0) g/dL Current Medications Generic Name Dose Route Start Last Admin Trade Name Davidq PRN Reason Stop Dose Admin Acetaminophen 650 mg 04/05/18 15:12 04/05/18 16:38 Tylenol Tab PO 650 mg Q4HR PRN Administration Mild Pain Aspirin 325 mg 04/06/18 09:00 Aspirin PO DAILY JAKE Heparin Sodium (Porcine) 0 unit 04/05/18 22:37 04/05/18 23:00 Heparin IV 4,000 unit PER PROTOCOL PRN Administration Low PTT Protocol Heparin Sodium/Sodium Chloride 250 mls @ 10 mls/hr 04/05/18 14:15 04/05/18 23 :00 25,000 unit/ Sodium Chloride IV 13.75 units/kg/hr .Q24H JAKE 12.78 mls/hr Titration Protocol 10.755 UNITS/KG/HR Sodium Chloride 1,000 mls @ 20 mls/hr 04/05/18 14:15 04/05/18 15:02 Saline 0.9% IV 20 mls/hr .Q24H JAKE Administration Lisinopril 10 mg 04/06/18 09:00 Zestril PO DAILY [facility] Metoprolol Tartrate 25 mg 04/05/18 21:00 04/05/18 23:02 Lopressor PO 25 mg BID JAKE Administration Nitroglycerin 1 inch 04/05/18 18:00 04/06/18 06:15 Nitro-Bid Oint TOPICAL 1 inch Q6HR JAKE Administration Nitroglycerin 0.4 mg 04/05/18 14:08 Nitrostat SUBLINGUAL Q5M PRN Chest Pain Intake and Output 04/05/18 04/06/18 04/06/18 22:59 06:59 14:59 Intake Total 78.667 Balance 78.667 Intake: Intake, IV Titration 78.667 Amount Heparin Sod,Pork in 0.45% 78.667 NaCl 25,000 unit In 0.45 % NaCl 1 250ml.bag @ 10. 755 UNITS/KG/HR 10 mls/hr IV .Q24H [facility] Rx#: [id number] Other: Voiding Method Toilet Toilet # Voids 1 2 04/05/18 09:42 04/05/18 09:42
--- NOTE | 2018-04-06 10:25 | ECHOF ---
Referral Reason:atypical chest pain/Accelerated HTN MEASUREMENTS -------- HEIGHT: 175.3 cm WEIGHT: 93.0 kg BP: 143/87 RVIDd: 3.2 cm (< 3.3) IVSd: 1.1 cm (0.6 - 1.1) LVIDd: 4.8 cm (3.9 - 5.3) LVPWd: 1.1 cm (0.6 - 1.1) IVSs: 1.8 cm LVIDs: 3.2 cm LVPWs: 1.8 cm LA Diam: 3.3 cm (2.7 - 3.8) LAESV Index (A-L): 16.84 ml/m Ao Diam: 4.2 cm (2.0 - 3.7) AV Cusp: 2.3 cm (1.5 - 2.6) MV EXCURSION: 18.221 mm (> 18.000) MV EF SLOPE: 62 mm/s (70 - 150) EPSS: 0.3 cm MV E Souleymane: 0.63 m/s MV DecT: 236 ms MV A Souleymane: 0.84 m/s MV E/A Ratio: 0.74 FINDINGS -------- Sinus rhythm. This was a technically adequate study. The left ventricular size is normal. There is borderline concentric left ventricular hypertrophy. Overall left ventricular systolic function is normal with, an EF between 60 - 65 %. The right ventricle is normal in size. Normal LA size by volume 22+/-6 ml/m2. The right atrium is normal in size. The aortic valve is trileaflet and appears structurally normal. The mitral valve is normal. The tricuspid valve appears structurally normal. Trace/mild (physiologic) pulmonic regurgitation. The aortic root is dilated measuring 4.2cm. Normal inferior vena cava with normal inspiratory collapse consistent with estimated right atrial pre ssure of 5 mmHg. There is no pericardial effusion. CONCLUSIONS -------- 1. Sinus rhythm. 2. This was a technically adequate study. 3. The left ventricular size is normal. 4. There is borderline concentric left ventricular hypertrophy. 5. Overall left ventricular systolic function is normal with, an EF between 60 - 65 %. 6. The right ventricle is normal in size. 7. Normal LA size by volume 22+/-6 ml/m2. 8. The right atrium is normal in size. 9. The aortic valve is trileaflet and appears structurally normal. 10. The mitral valve is normal. 11. The tricuspid valve appears structurally normal. 12. Trace/mild (physiologic) pulmonic regurgitation. 13. The aortic root is dilated measuring 4.2cm. 14. Normal inferior vena cava with normal inspiratory collapse consistent with estimated right atrial pressure of 5 mmHg. 15. There is no pericardial effusion. BUNDLE CUTTER: Andie Apodaca RDCS
[2018-04-06] MEDS: methylPREDNISolone SOD SUCCI 125 MG/2 ML VIAL IV SCH ×2 (10:36→13:05)
--- NOTE | 2018-04-06 10:39 | P.CRDCN ---
History of Present Illness History of present illness: Impression intermittent examined. Pleuritic chest pain but has a history of hypertension, regular alcohol use, dyslipidemia Normal cardiac enzymes Abnormal LFTs Normal TSH LDL 73 Suggest Continue oral antibiotics as started by pulmonary medicine, edilberto inhibitors, hold off on statins until LFTs improve Past Medical History Past Medical History: COPD Additional Past Medical History / Comment(s): asthma as child History of Any Multi-Drug Resistant Organisms: None Reported Additional Past Surgical History / Comment(s): LEFT ARM SURGICAL DEBRIDEMENT 08/18 FROM SANDBLASTING INJURY Past Anesthesia/Blood Transfusion Reactions: No Reported Reaction Past Psychological History: No Psychological Hx Reported Smoking Status: Current every day smoker Past Alcohol Use History: Daily Past Drug Use History: None Reported - Past Family History Mother Family Medical History: Hypertension Father Family Medical History: Coronary Artery Disease (CAD) Medications and Allergies Home Medications Medication Instructions Recorded Confirmed Type Aspirin EC [Ecotrin] 325 mg PO DAILY PRN 04/05/18 04/05/18 History Allergies Allergy/AdvReac Type Severity Reaction Status Date / Time Penicillins Allergy Unknown Verified 04/05/18 10:08 Childhood Physical Exam Vitals: Vital Signs Temp Pulse Pulse Pulse Resp BP BP 04/06/18 08:00 97.8 F 69 16 131/79 04/06/18 03:44 98.2 F 74 18 131/72 04/06/18 03:13 18 04/06/18 00:00 97.8 F 75 18 151/84 04/05/18 20:00 98.7 F 79 16 163/92 04/05/18 19:46 04/05/18 16:00 98.5 F 88 16 155/91 04/05/18 15:30 98.0 F 87 18 151/86 04/05/18 15:00 97.8 F 80 18 151/88 04/05/18 14:10 79 152/95 04/05/18 14:08 04/05/18 14:00 77 16 143/87 04/05/18 13:50 79 16 143/87 04/05/18 13:00 77 16 140/86 04/05/18 12:11 80 18 130/81 04/05/18 12:00 81 16 143/80 04/05/18 11:00 90 18 133/95 04/05/18 10:47 90 Pulse Ox 04/06/18 08:00 94 L 04/06/18 03:44 92 L 04/06/18 03:13 04/06/18 00:00 95 04/05/18 20:00 95 04/05/18 19:46 96 04/05/18 16:00 96 04/05/18 15:30 96 04/05/18 15:00 04/05/18 14:10 04/05/18 14:08 96 04/05/18 14:00 04/05/18 13:50 95 04/05/18 13:00 95 04/05/18 12:11 96 04/05/18 12:00 96 04/05/18 11:00 97 04/05/18 10:47 Intake and Output 04/05/18 04/06/18 04/06/18 22:59 06:59 14:59 Intake Total 78.667 Balance 78.667 Intake: Intake, IV Titration 78.667 Amount Heparin Sod,Pork in 0.45% 78.667 NaCl 25,000 unit In 0.45 % NaCl 1 250ml.bag @ 10. 755 UNITS/KG/HR 10 mls/hr IV .Q24H [facility] Rx#: [id number] Other: Voiding Method Toilet Toilet Toilet # Voids 1 2 Results 04/05/18 09:42 04/05/18 09:42 Cardiac Enzymes 04/05/18 04/05/18 04/05/18 Range/Units 09:42 16:25 20:59 CK-MB (CK-2) <0.2 <0.2 <0.2 (0.0-2.4) ng/mL Troponin I <0.012 <0.012 <0.012 (0.000-0.034) ng/mL Coagulation 04/05/18 04/06/18 Range/Units 20:59 05:29 APTT 33.8 H 60.5 H (22.0-30.0) sec Lipids 04/06/18 Range/Units 05:29 Triglycerides 93 (<150) mg/dL Cholesterol 142 (<200) mg/dL HDL Cholesterol 50 (40-60) mg/dL Current Medications Generic Name Dose Route Start Last Admin Trade Name Freq PRN Reason Stop Dose Admin Acetaminophen 650 mg 04/05/18 15:12 04/05/18 16:38 Tylenol Tab PO 650 mg Q4HR PRN Administration Mild Pain Albuterol/Ipratropium 3 ml 04/06/18 12:00 Duoneb 0.5 Mg-3 Mg/3 Ml Soln INHALATION RT-QID JAKE Azithromycin 500 mg 04/06/18 09:00 04/06/18 10:34 Zithromax PO 500 mg DAILY JAKE Administration Heparin Sodium (Porcine) 0 unit 04/05/18 22:37 04/05/18 23:00 Heparin IV 4,000 unit PER PROTOCOL PRN Administration Low PTT Protocol Sodium Chloride 1,000 mls @ 20 mls/hr 04/05/18 14:15 04/05/18 15:02 Saline 0.9% IV 20 mls/hr .Q24H JAKE Administration Lisinopril 10 mg 04/06/18 09:00 04/06/18 10:34 Zestril PO 10 mg DAILY JAKE Administration Methylprednisolone Sodium Succinate 60 mg 04/06/18 08:15 04/06/18 10:36 Solu-Medrol IV 60 mg Q6HR JAKE Administration Nitroglycerin 0.4 mg 04/05/18 14:08 Nitrostat SUBLINGUAL Q5M PRN Chest Pain Intake and Output 04/05/18 04/06/18 04/06/18 22:59 06:59 14:59 Intake Total 78.667 Balance 78.667 Intake: Intake, IV Titration 78.667 Amount Heparin Sod,Pork in 0.45% 78.667 NaCl 25,000 unit In 0.45 % NaCl 1 250ml.bag @ 10. 755 UNITS/KG/HR 10 mls/hr IV .Q24H [facility] Rx#: [id number] Other: Voiding Method Toilet Toilet Toilet # Voids 1 2 04/05/18 09:42 04/05/18 09:42
[2018-04-06] MEDS ORDERED: IPRATROPIUM-ALBUTEROL 3 ML NEB INHALATION SCH (12:00)
[2018-04-06 12:06] VITALS: BP 137/85; PULSE 68; RESP 18; TEMP 97.7
--- NOTE | 2018-04-06 13:40 | P.DS ---
Providers Date of admission: 04/05/18 14:08 Expected date of discharge: 04/06/18 Attending physician: Vickie Portillo DO Consults: 04/05/18 14:08 Consult Physician Urgent Consulting Provider: Med Tolbert Consult Reason/Comments: Chest pain Do you want consulting provider notified?: Yes 04/05/18 15:17 Consult Physician Routine Consulting Provider: Roberta Stone Consult Reason/Comments: copd/pulmonary nodules Do you want consulting provider notified?: Yes Primary care physician: Raffy Mcfadden - Discharge Diagnosis(es) (1) Atypical chest pain Current Visit: Yes Status: Acute (2) Essential hypertension Current Visit: Yes Status: Acute (3) COPD exacerbation Current Visit: Yes Status: Acute (4) Smoker Current Visit: Yes Status: Acute (5) Alcohol dependence Current Visit: Yes Status: Acute (6) Pulmonary nodules/lesions, multiple Current Visit: Yes Status: Acute (7) Fatty liver Current Visit: Yes Status: Acute Hospital Course: The patient is a 62 year old male that presented with atypical chest pain found to be pleuritic in nature and attributed to an acute COPD exacerbation, was placed in observation to rule out ACS. His EKG on arrival showed sinus mechanism with no acute ST or T wave abnormalities, his initial and sequential troponins were all negative. Patient was noted to have a mildly elevated d-dimer at 0.93. CTA of the chest ruled out PE but did show multiple calcified pulmonary nodules which was attributed by pulmonary to be likely related to old granulomatous disease. The patient was started on scheduled and when necessary bronchodilator DuoNeb breathing treatments, systemic steroids with Solu-Medrol IV, as well as a Z-Rod. The patient was also noted to have mild transaminitis workup of which indicated it was secondary to underlying fatty liver. The patient's condition stabilized and he was sent home with a prescription for Z-Rod, prednisone taper, Symbicort and a new prescription for lisinopril. This discharge process took approximately 30 minutes Focused exam Respiratory: Mild expiratory wheezes, unlabored, no distress Patient Condition at Discharge: Good Plan - Discharge Summary Discharge Rx Participant: No New Discharge Prescriptions: New Lisinopril [Zestril] 10 mg PO DAILY #30 tab Continue Aspirin EC [Ecotrin] 325 mg PO DAILY PRN PRN Reason: Pain Discharge Medication List Aspirin EC [Ecotrin] 325 mg PO DAILY PRN 04/05/18 [History] Lisinopril [Zestril] 10 mg PO DAILY #30 tab 04/06/18 [Rx] Follow up Appointment(s)/Referral(s): Roberta Stone MD [STAFF PHYSICIAN] - 04/24/18 2:30 pm Karl Valles MD [STAFF PHYSICIAN] - 04/25/18 4:00 pm Raffy Mcfadden MD [Primary Care Provider] - 1-2 days (Monday, 04/10 at 0930 am) Patient Instructions/Handouts: COPD (Chronic Obstructive Pulmonary Disease) (DC ), How Your Lungs Work (DC), Chronic Lung Disease and Infection Prevention (ED) Activity/Diet/Wound Care/Special Instructions: Scripts included from [employer] [facility]- Ventolin inhaler, Symbicort inhaler, and medrol dose taper. Discharge Disposition: HOME SELF-CARE
[2018-04-06] MEDS ORDERED: ALBUTEROL INHALER 60 PUFF/8 GM INHALER INHALATION SCH (16:00)
== END 2018-04-06 14:00 | disposition home or self-care (01) ==
LOC: EC 09:27 → 1SOBS 14:08
PROVIDERS: ADMIT Internal Medicine; ATTEND Internal Medicine
DX: R07.89 Other chest pain (principal); I10 Essential (primary) hypertension; J44.1 Chronic obstructive pulmonary disease with (acute) exacerbation; R10.13 Epigastric pain; R94.31 Abnormal electrocardiogram [ECG] [EKG]; F10.20 Alcohol dependence, uncomplicated; R91.8 Other nonspecific abnormal finding of lung field; E78.5 Hyperlipidemia, unspecified; F17.210 Nicotine dependence, cigarettes, uncomplicated; K76.0 Fatty (change of) liver, not elsewhere classified; R79.89 Other specified abnormal findings of blood chemistry; Z88.0 Allergy status to penicillin; Z82.49 Family history of ischemic heart disease and other diseases of the circulatory system
CPT/HCPCS: 96366 ×2; 96375; 96376 ×2; 96365; 99291; 36415; 94640 ×2; 93005; 93306; 85379; 83880; 80061; 80053; 84443; 82550; 82553; 83735; 84484; 85025; 85610; 85730 ×2; 71046; 76705; 71275; G0378 ×2; J1644 ×2; J2930; Q9967

== ENCOUNTER → 2019-11-22 | Outpatient (CLI) | payer BC ==
--- NOTE | 2019-11-22 10:18 | CT ---
EXAMINATION TYPE: CT angio thor/abd pel aorta DATE OF EXAM: 11/22/2019 COMPARISON: 04/05/2018 HISTORY: Follow up AAA CT DLP: 990.1 mGycm CONTRAST: CTA thoracic and abdominal aorta with 3-D reconstruction is performed and without and with IV Contras t, patient injected with 100 mL of Isovue 370. Contrast CTA of the thoracic and abdominal aorta was performed from the lung apex through the base of the pelvis. 3-D reconstruction imaging obtained at a separate workstation. CT Chest: THORACIC AORTA: Aortic root aneurysm is stable at 4.4 cm maximal dimension versus 4.4 cm previously. Remaining thoracic aorta is of normal caliber. Scattered atheromatous changes noted. No dissection or mediastinal hematoma. Mild atheromatous changes are seen. LUNGS: The lungs are clear and free of infiltrate or atelectasis. No pulmonary nodule or mass is det ected. No pleural effusion or CT evidence of interstitial lung disease. MEDIASTINUM: The heart is not enlarged. No evidence for mediastinal mass or adenopathy. HILAR STRUCTURES: No evidence for mass. No hilar adenopathy is appreciated. OTHER: No significant abnormality. CONTRAST CT ABDOMEN AND PELVIS ABDOMINAL AORTA: There is saccular aneurysm of the infrarenal abdominal aorta measuring 7.1 x 5.6 x 6 cm. Aneurysm extends to the level of the bifurcation to the left of midline. Impending rupture is di fficult to exclude. Branch vessels are patent. Iliac vessels are atheromatous and patent without percy tional aneurysm. LIVER/GB- No significant abnormality is seen. PANCREAS- No significant abnormality is seen. SPLEEN- No significant abnormality is seen. ADRENALS- No significant abnormality is seen. KIDNEYS/BLADDER- No significant abnormality is seen. BOWEL- No Significant abnormality GENITAL ORGANS: No gross abnormality seen. LYMPH NODES- No greater than 1cm abdominal or pelvic lymph nodes are appreciated. OSSEOUS STRUCTURES- No significant abnormality is seen. OTHER- No significant abnormality is seen. IMPRESSION- 1. Large saccular aneurysm distal abdominal aorta extending to the bifurcation to the left midline. I mpending rupture or slow leak is difficult to exclude.
== END | disposition home or self-care (01) ==
LOC: RADCTMAIN 06:51
PROVIDERS: ATTEND Nurse Practitioner Adult Health
DX: I71.4 Abdominal aortic aneurysm, without rupture (principal)
CPT/HCPCS: 71275; 74174; Q9967

== ENCOUNTER → 2019-11-28 | Outpatient (CLI) | payer BC ==
[2019-11-28 10:23] LABS: Basophils % (A) 1 %; Eosinophils # (A) 0.3 k/uL (0-0.7); Eosinophils % (A) 3 %; HCT 47.3 % (39.0-53.0); HGB 15.3 gm/dL (13.0-17.5); Lymphocytes # (A) 1.7 k/uL (1.0-4.8); Lymphocytes % (A) 21 %; MCH 29.8 pg (25.0-35.0); MCHC 32.2 g/dL (31.0-37.0); MCV 92.3 fL (80.0-100.0); Mean Platelet Volume 8.4; Monocytes # (A) 0.5 k/uL (0-1.0); Monocytes % (A) 7 %; Neutrophils # (A) 5.4 k/uL (1.3-7.7); Neutrophils % (A) 68 %; Platelet Count 167 k/uL (150-450); RBC 5.13 m/uL (4.30-5.90); RDW 12.8 % (11.5-15.5)
[2019-11-28 10:36] LABS: African American GFR (CKD) >90 (>60 ml/min/1.73 sqM); Anion Gap 8 mmol/L; Blood Urea Nitrogen 13 mg/dL (9-20); Carbon Dioxide 30 mmol/L (22-30); Chloride 100 mmol/L (98-107); Non-African American GFR(CKD) 78 (>60 ml/min/1.73 sqM); Potassium 4.1 mmol/L (3.5-5.1); Sodium 138 mmol/L (137-145)
== END | disposition home or self-care (01) ==
LOC: LABPAT 09:32
PROVIDERS: ATTEND Surgery
DX: Z01.818 Encounter for other preprocedural examination (principal); I71.4 Abdominal aortic aneurysm, without rupture
CPT/HCPCS: 36415; 80051; 82565; 84520; 85025; 86850; 86900; 86901

== ENCOUNTER 2019-12-02 07:41 | Inpatient (IN) | payer BC ==
[2019-11-29 11:09] VITALS: BMI 28.0
[~2019-12-02 07:41] MED LIST: SODIUM CHLORIDE 0.9% 1,000 ML in EMPTY BAG 1 BAG IV ONE
[2019-12-02] MEDS ORDERED: NITROGLYCERIN-D5W PMX 50 MG in DEXTROSE/WATER 1 250ML.BAG IV SCH (09:15)
[2019-12-02] MEDS ORDERED: VANCOMYCIN 1,000 MG in SODIUM CHLORIDE 0.9% 250 ML IVPB ONE (10:00)
[2019-12-02] MEDS ORDERED: PHENYLEPHRINE-0.9% NACL SYG 1 MG/10 ML SYRINGE ONE (11:10)
[2019-12-02] MEDS ORDERED: NEOSTIGMINE 1 MG/ML 10 ML VIAL ONE (11:10)
[2019-12-02] MEDS ORDERED: MIDAZOLAM 2 MG/2 ML VIAL ONE (11:10)
[2019-12-02] MEDS ORDERED: NITROGLYCERIN-D5W PMX 50 MG/250 ML BOTTLE IV ONE (11:10)
[2019-12-02] MEDS ORDERED: HEPARIN SODIUM,PORCINE 10,000 UNIT/ML 1 ML VIAL ONE (11:10)
[2019-12-02] MEDS ORDERED: fentaNYL (PF) 50 MCG/ML 2 ML AMP ONE (11:10)
[2019-12-02] MEDS ORDERED: PROPOFOL 10 MG/ML 20 ML VIAL IV ONE (11:10)
[2019-12-02] MEDS ORDERED: GLYCOPYRROLATE 0.2 MG/ML 2 ML VIAL ONE (11:10)
[2019-12-02] MEDS ORDERED: SUCCINYLCHOLINE CHLORIDE 100 MG/5 ML SYR IV ONE (11:10)
[2019-12-02] MEDS ORDERED: ROCURONIUM BROMIDE 10 MG/ML 5 ML VIAL IV ONE (11:10)
[2019-12-02] MEDS ORDERED: LIDOCAINE 1% INJ 10MG/ML (20 ML MDV) ONE (11:10)
[2019-12-02] MEDS ORDERED: SODIUM CHLORIDE 0.9% 500 ML 500 ML IV ONE ×2 (11:25→13:27)
--- NOTE | 2019-12-02 13:05 | P.OP ---
Description of Procedure: Date: 12/02/2019 Preoperative diagnosis: Asymptomatic Infrarenal 7.3 cm saccular AAA Postoperative diagnosis: Same Procedure: 1. Percutaneous Endovascular aortic repair with [place] device. 2. Ultrasound-guided bilateral common femoral artery access Surgeon: Jaron SAMANIEGO Anesthesia: General Estimated blood loss: 15 mL Complications: None Condition: Stable Disposition: Palpable DP pulses bilaterally Indications: 64-year-old gentleman who presented to the office secondary to large infrarenal AAA noted on recent CT chest abdomen and pelvis. Aneurysm measured up to 7.3 cm and was saccular and therefore required intervention. I did discuss with him options including open versus endovascular repair which he chose endovascular repair and he is amenable to that repair. He presents today for procedure. Operative narrative: After written and informed consent was obtained from the patient all risks benefits and complications were described the patient was brought to the Cytopathology Technologist and laid in a supine position. The area of the groins were prepped and draped in usual sterile fashion after appropriate anesthetic was performed per the anesthesiologist. A timeout was performed in normal fashion and antibiotics were administered prior to incisions. Utilizing ultrasound bilateral common femoral arteries were visualized demonstrating patency with minimal calcification. Under ultrasound guidance utilizing a multipurpose needle bilateral common femoral arteries were accessed and guidewire was placed followed by deployment of 2 Perclose closure devices for each femoral artery. Utilizing Seldinger technique and 8-Amharic sheath was then placed and patient was administered heparin and followed with ACTs. 035 Glidewire was then placed up the right femoral sheath and exchanged for a Lunderquist wire through an angled glide catheter. The left femoral artery was then utilized and guidewire was placed followed by pigtail catheter and aortogram was obtained. Utilizing the Lunderquist wire a 26 mm main body device was then loaded over the guidewire after the 8-Amharic sheath was removed. Delivery system was then placed 1 cm proximal to the intended landing site and the aortic body was oriented for appropriate access for the contralateral limb. Delivery system was then retracted out of the sheath and the aortic body radiopaque markers were verified to be in the correct position. First segment of the graft was then deployed in normal fashion by releasing and pulling the knob in normal fashion. Balloon injection port was then inflated utilizing a 4- 1 saline contrast mixture in order to open the mid crown. Balloon was then deflated. Precise positioning was then performed with utilizing the radiopaque markers and parallax was removed and our to land at the renal arteries. Pigtail catheter was then retracted away from the proximal stent and the proximal stent was released in normal fashion. Polymer was then utilized and filled through the polymer port which was visualized under fluoroscopy. The stiff Lunderquist wire was then retracted within the ipsilateral limb. Attention was then placed to accessing the contralateral limb. Utilizing the Glidewire and angled glide catheter the contralateral limb was accessed and pigtail catheter was placed. Pigtail catheter was then spun to verify intragraft cannulation. A stiff wire was then placed within the pigtail catheter and retrograde angiogram was obtained demonstrating the internal iliac artery takeoff. Measurements were obtained and a 14 x 160 mm Ovation limb was chosen to be deployed and deployed in normal fashion. Once completed the aortic main body was completely deployed in normal fashion. Utilizing the balloon balloon angioplasty was performed at the ring to further mold the polymer to the aortic neck. Once completed the aortic body deployment sheath was removed in normal fashion. Pigtail catheter was then placed over the Lunderquist wire and retrograde angiogram was obtained with measurements to the internal iliac artery on the ipsilateral limb. A 14 x 140 mm Ovation limb was chosen and deployed in normal fashion. Once completed two 12 x 40mm balloons were placed up each iliac limb and balloon angioplasty was performed through its entirety. Once completed balloons were removed and pigtail catheter was placed above the graft and final angiogram was obtained demonstrating exclusion of the aneurysm with no evidence of endoleak's. All guidewires and catheters were then removed and the Perclose closure devices were closed in normal fashion. The areas were then cleansed and dressings were placed. The patient tolerated procedure well and had palpable DP pulses bilaterally and was sent to PACU for recovery.
[2019-12-02] MEDS ORDERED: IOPAMIDOL-250 100ML BTL INTRAARTER ONE ×2 (13:16→13:17)
[2019-12-02 14:13] LABS: Glucose,Whole Blood 101 mg/dL (75-99)
--- NOTE | 2019-12-02 14:39 | P.CNPUL ---
History of Present Illness Consult date: 12/02/19 Requesting physician: Leonel Salmeron Chief complaint: Infrarenal AAA History of present illness: 64-year-old white male patient of Dr. Mcfadden, with extensive history of smoking, [id number], hypertension, previous history of myocardial infarction, daily EtOH use, COPD, not oxygen dependent, and history of infrarenal AAA measuring 7.3 cm, was evaluated by vascular surgery, and underwent percutaneous endovascular aortic repair with [place] device with ultrasound guided bilateral common femoral artery access. Patient was seen in the phase I recovery following his surgery. He is alert and oriented 3, and 6 L per mask and his pulse ox is 100%, his blood pressure is 139/65, his in sinus mechanism with a rate of 58 BPM, no fever or chills. His lactated Ringer's fusing at 80 ML per hour, and he is on nitroglycerin infusion at 55 mics per kilo per minute. He is on vancomycin for antibiotic coverage, he is on aspirin and Lipitor, and [place] for pain control. His lung sounds are clear, he denies any difficulty breathing, his bilateral groin incision sites are clean dry and intact, his distal pedal pulses are palpable. Extremities are warm. He is awaiting a bed in the intensive care unit. Review of Systems All systems: negative Constitutional: Denies chills, Denies fever Eyes: denies blurred vision, denies pain Ears, nose, mouth and throat: Denies headache, Denies sore throat Cardiovascular: Denies chest pain, Denies shortness of breath Respiratory: Denies cough Gastrointestinal: Denies abdominal pain, Denies diarrhea, Denies nausea, Denies vomiting Musculoskeletal: Denies myalgias Integumentary: Denies pruritus, Denies rash Neurological: Denies numbness, Denies weakness Psychiatric: Denies anxiety, Denies depression Endocrine: Denies fatigue, Denies weight change Past Medical History Past Medical History: Chest Pain / Angina, COPD, Hypertension Additional Past Medical History / Comment(s): asthma as child History of Any Multi-Drug Resistant Organisms: None Reported Additional Past Surgical History / Comment(s): LEFT ARM SURGICAL DEBRIDEMENT 08/18/16 FROM SANDBLASTING INJURY Past Anesthesia/Blood Transfusion Reactions: No Reported Reaction Smoking Status: Current every day smoker - Past Family History Mother Family Medical History: Hypertension Father Family Medical History: Cancer, Coronary Artery Disease (CAD) Medications and Allergies Home Medications Medication Instructions Recorded Confirmed Type Atorvastatin Calcium [Lipitor] 10 mg PO DAILY 11/29/19 12/02/19 History Lisinopril-Hctz 10-12.5 mg 1 tab PO DAILY 11/29/19 12/02/19 History [Zestoretic 10-12.5] Allergies Allergy/AdvReac Type Severity Reaction Status Date / Time Penicillins Allergy Unknown Verified 12/02/19 10:31 Childhood Physical Exam Vitals: Vital Signs Temp Pulse Pulse Resp BP BP Pulse Ox 12/02/19 14:15 65 16 125/65 139/65 100 12/02/19 14:00 58 L 16 127/70 145/59 100 12/02/19 13:45 62 16 139/72 164/66 99 12/02/19 13:39 97.1 F L 69 14 169/64 164/69 99 12/02/19 10:50 98.8 F 75 18 173/88 97 Intake and Output 12/01/19 12/02/19 12/02/19 22:59 06:59 14:59 Intake Total 1100 Output Total 525 Balance 575 Intake: IV 1100 Output: Urine 525 GENERAL EXAM: Alert, very pleasant, 64-year-old white male, on 6 L of oxygen with a pulse ox of 100%, resting on the gurney, comfortably, in the phase I recovery room in no apparent distress. HEAD: Normocephalic/atraumatic. EYES: Normal reaction of pupils, equal size. Conjunctiva pink, sclera white. NOSE: Clear with pink turbinates. THROAT: No erythema or exudates. NECK: No masses, no JVD, no thyroid enlargement, no adenopathy. CHEST: No chest wall deformity. Symmetrical expansion. LUNGS: Equal air entry with no crackles, wheeze, rhonchi or dullness. CVS: Regular rate and rhythm, normal S1 and S2, no gallops, no murmurs, no rubs ABDOMEN: Soft, nontender. No hepatosplenomegaly, normal bowel sounds, no guarding or rigidity. EXTREMITIES: No clubbing, no edema, no cyanosis, 2+ pulses and upper and lower extremities. Bilateral femoral site incision is clean dry and intact MUSCULOSKELETAL: Muscle strength and tone normal. SPINE: No scoliosis or deformity SKIN: No rashes CENTRAL NERVOUS SYSTEM: Alert and oriented -3. No focal deficits, tone is normal in all 4 extremities. PSYCHIATRIC: Alert and oriented -3. Appropriate affect. Intact judgment and insight. Results - Laboratory Findings Abnormal lab findings: Abnormal Labs 12/02/19 14:12 POC Glucose (mg/dL) 101 H Assessment and Plan Plan: Assessment: #1. Asymptomatic, infrarenal, 7.3 cm saccular AAA, status post percutaneous endovascular aortic repair with [place] device and ultrasound-guided bilateral common femoral artery access #2. Chronic history of smoking, [id number]-rimf smoking history #3. History of COPD, not oxygen dependent at baseline #4. Hypertension #5. History of calcified pulmonary nodules throughout the lungs likely related to an old granulomatous disease #6. Chronic history of daily EtOH use, patient consumes 5-6 beers on a daily basis, we will initiate CIWA protocol #7. Previous history of myocardial infarction Plan: Patient is doing well following his procedure, he seen in the recovery room, he is awake, he is answering questions appropriate, he denies any acute distress, continue close hemodynamic monitoring in the intensive care unit, monitor for signs of bleeding, worsening dyspnea. Antibiotics, anticoagulation, aspirin and Lipitor per vascular surgery. Follow blood work is pending. COPD is currently stable and inactive. Initiate CIWA protocol for acute alcohol withdrawal precautions. We'll continue to closely monitor in the intensive care unit along with plastic surgery I performed a history & physical examination of the patient and discussed their management with my nurse practitioner, Ariella Skinner. I reviewed the nurse practitioner's note and agree with the documented findings and plan of care. Lung sounds are positive for diminished breath sounds. The findings and the impression was discussed with the patient. I attest to the documentation by the nurse practitioner. Time with Patient: Greater than 30
[2019-12-02 14:57] LABS: Glucose,Whole Blood 95 mg/dL (75-99)
[2019-12-02] MEDS: PHENYLEPHRINE 40 MG in SODIUM CHLORIDE 0.9% 250 ML IV SCH (15:50)
[2019-12-02] MEDS: LACTATED RINGERS 1,000 ML IV SCH (15:50)
[2019-12-02 15:51] LABS: Basophils % (A) 1 %; Eosinophils # (A) 0.2 k/uL (0-0.7); Eosinophils % (A) 2 %; HCT 43.9 % (39.0-53.0); HGB 14.1 gm/dL (13.0-17.5); Lymphocytes # (A) 1.7 k/uL (1.0-4.8); Lymphocytes % (A) 20 %; MCH 30.2 pg (25.0-35.0); MCHC 32.2 g/dL (31.0-37.0); MCV 93.8 fL (80.0-100.0); Mean Platelet Volume 8.4; Monocytes # (A) 0.6 k/uL (0-1.0); Monocytes % (A) 7 %; Neutrophils # (A) 6.2 k/uL (1.3-7.7); Neutrophils % (A) 70 %; Platelet Count 155 k/uL (150-450); RBC 4.68 m/uL (4.30-5.90); RDW 12.6 % (11.5-15.5); WBC 8.8 k/uL (3.8-10.6)
[2019-12-02] MEDS: SODIUM CHLORIDE 0.9% 1,000 ML IV SCH (15:51)
--- NOTE | 2019-12-02 15:52 | IR ---
EXAMINATION TYPE: IR waiter/waitress captain aorta DATE OF EXAM: 12/02/2019 COMPARISON: NONE HISTORY: Fluoroscopy time. Fluoroscopy was provided to the referring clinician.
[2019-12-02 15:58] LABS: African American GFR (CKD) >90 (>60 ml/min/1.73 sqM); Anion Gap 3 mmol/L; Blood Urea Nitrogen 9 mg/dL (9-20); Calcium 8.6 mg/dL (8.4-10.2); Carbon Dioxide 25 mmol/L (22-30); Chloride 107 mmol/L (98-107); Glucose 92 mg/dL (74-99); Non-African American GFR(CKD) 90 (>60 ml/min/1.73 sqM); Potassium 4.7 mmol/L (3.5-5.1); Sodium 135 mmol/L (137-145)
[2019-12-02] MEDS: HYDROcodone/APAP 5-325MG 1 EACH TAB PO PRN (21:21)
[2019-12-03] MEDS: PHENYLEPHRINE 40 MG in SODIUM CHLORIDE 0.9% 250 ML IV SCH (00:02)
[2019-12-03 01:14] VITALS: TEMP 98.1
[2019-12-03] MEDS: LACTATED RINGERS 1,000 ML IV SCH (05:15)
[2019-12-03] MEDS: SODIUM CHLORIDE 0.9% 1,000 ML IV SCH (05:16)
[2019-12-03 07:27] LABS: African American GFR (CKD) >90 (>60 ml/min/1.73 sqM); Non-African American GFR(CKD) 89 (>60 ml/min/1.73 sqM)
[2019-12-03] MEDS ORDERED: IPRATROPIUM-ALBUTEROL 3 ML NEB INHALATION PRN (08:21)
[2019-12-03 08:32] LABS: Basophils % (A) 1 %; Eosinophils # (A) 0.3 k/uL (0-0.7); Eosinophils % (A) 4 %; HCT 44.2 % (39.0-53.0); HGB 14.4 gm/dL (13.0-17.5); Lymphocytes # (A) 1.3 k/uL (1.0-4.8); Lymphocytes % (A) 15 %; MCH 30.2 pg (25.0-35.0); MCHC 32.6 g/dL (31.0-37.0); MCV 92.7 fL (80.0-100.0); Mean Platelet Volume 9.2; Monocytes # (A) 0.7 k/uL (0-1.0); Monocytes % (A) 8 %; Neutrophils # (A) 6.1 k/uL (1.3-7.7); Neutrophils % (A) 72 %; Platelet Count 155 k/uL (150-450); RBC 4.77 m/uL (4.30-5.90); RDW 12.6 % (11.5-15.5); WBC 8.5 k/uL (3.8-10.6)
[2019-12-03 08:41] LABS: Anion Gap 7 mmol/L; Blood Urea Nitrogen 16 mg/dL (9-20); Calcium 8.9 mg/dL (8.4-10.2); Carbon Dioxide 25 mmol/L (22-30); Chloride 104 mmol/L (98-107); Glucose 103 mg/dL (74-99); Potassium 4.4 mmol/L (3.5-5.1); Sodium 136 mmol/L (137-145)
[2019-12-03] MEDS ORDERED: ASPIRIN 81 MG PO SCH (09:00)
[2019-12-03] MEDS ORDERED: LISINOPRIL-HCTZ 10-12.5 MG 1 EACH TAB PO SCH (09:00)
[2019-12-03] MEDS ORDERED: ATORVASTATIN 10 MG TAB PO SCH (09:00)
--- NOTE | 2019-12-03 10:26 | P.DS ---
Providers Date of admission: 12/02/19 10:19 Expected date of discharge: 12/03/19 Attending physician: Leonel Salmeron DO Consults: 12/02/19 05:57 Consult to Anesthesia Routine Consulting Provider: Anesthesia,Services Consult Reason/Comments: General anesthesia for Aortic Stent procedure 12/02/19 13:11 Consult Physician Routine Consulting Provider: Vickie Portillo Consult Reason/Comments: medical management Do you want consulting provider notified?: Yes 12/02/19 13:14 Consult Physician Routine Consulting Provider: Live De La Cruz Consult Reason/Comments: icu care Do you want consulting provider notified?: Yes Primary care physician: Stated None Hospital Course: This is a pleasant 64-year-old gentleman who presented to hospital yesterday for repair of a large infrarenal AAA noted on recent CT chest abdomen and pelvis. Aneurysm measured up to 7.3 cm and was saccular and therefore required intervention. He is postop day #1 for endovascular repair of abdominal aortic aneurysm. Assessment: General appearance: The patient is alert, oriented, in no acute distress. HET: Head is normocephalic and atraumatic. Neck: Supple without lymphadenopathy. Trachea midline. Heart: S1 S2. Regular rate and rhythm. Lungs: No crackles or wheezes are heard. Abdomen: Soft, nontender, nondistended with bowel sounds. Extremities: Normal skin color and turgor. No cyanosis, rash, ulceration, clubbing, or edema. Bilateral groin incision sites without any bleeding, no hematoma noted. Palpable bilateral DP pulses. Able to freely move bilateral lower extremities Neurological: No focal deficits. Strength and sensation are grossly intact. Assessment: 1. Status postop day #1 for endovascular abdominal aortic repair 2. Asymptomatic infrarenal 7.3 cm saccular AAA Plan: Reynolds catheter discontinued. Discontinue A-line. Patient may be discharged home and to follow-up with Dr. Salmeron in 1 week. Driving and lifting restricti ons discuss with patient and will be put on discharge plan. Daily Low-dose aspirin. The above dictated assessment and findings were discussed with Dr. Salmeron. The impression and plan of care have been directed as dictated. Procedures: Percutaneous endovascular aortic repair with alto device Patient Condition at Discharge: Good Plan - Discharge Summary Discharge Rx Participant: No New Discharge Prescriptions: New Aspirin 81 mg PO DAILY #90 chew Continue Atorvastatin Calcium [Lipitor] 10 mg PO DAILY Lisinopril-Hctz 10-12.5 mg [Zestoretic 10-12.5] 1 tab PO DAILY Discharge Medication List Atorvastatin Calcium [Lipitor] 10 mg PO DAILY 11/29/19 [History] Lisinopril-Hctz 10-12.5 mg [Zestoretic 10-12.5] 1 tab PO DAILY 11/29/19 [History] Aspirin 81 mg PO DAILY #90 chew 12/03/19 [Rx] Follow up Appointment(s)/Referral(s): Leonel Salmeron DO [STAFF PHYSICIAN] - 1 Week Activity/Diet/Wound Care/Special Instructions: No driving 1 week no heavy lifting greater than 20 pounds until further evaluation by Dr. Salmeron. May shower no tub baths. Discharge Disposition: HOME SELF-CARE
[2019-12-03 11:17] VITALS: BP 129/80; PULSE 68; RESP 22
[2019-12-03] MEDS: HYDROcodone/APAP 5-325MG 1 EACH TAB PO PRN (11:17)
--- NOTE | 2019-12-03 14:28 | P.PN ---
Subjective Progress Note Date: 12/03/19 Principal diagnosis: Infrarenal abdominal aortic aneurysm, status post percutaneous endovascular aortic repair postoperative day #1 64-year-old white male patient of Dr. Mcfadden, with extensive history of smoking, [id number], hypertension, previous history of myocardial infarction, daily EtOH use, COPD, not oxygen dependent, and history of infrarenal AAA measuring 7.3 cm, was evaluated by vascular surgery, and underwent percutaneous endovascular aortic repair with [place] device with ultrasound guided bilateral common femoral artery access. Patient was seen in the phase I recovery following his surgery. He is alert and oriented 3, and 6 L per mask and his pulse ox is 100%, his blood pressure is 139/65, his in sinus mechanism with a rate of 58 BPM, no fever or chills. His lactated Ringer's fusing at 80 ML per hour, and he is on nitroglycerin infusion at 55 mics per kilo per minute. He is on vancomycin for antibiotic coverage, he is on aspirin and Lipitor, and [place] for pain control. His lung sounds are clear, he denies any difficulty breathing, his bilateral groin incision sites are clean dry and intact, his distal pedal pulses are palpable. Extremities are warm. He is awaiting a bed in the intensive care unit. Patient was reevaluated today on 12/03/19, he is status post endovascular repair of large infrarenal aortic abdominal aneurysm. Patient is doing great, asymptomatic, denies any shortness of breath, denies any pain, and I believe he would likely be discharged home today by vascular surgery. No major events overnight. CBC this morning is normal electrolytes and renal profile are normal Objective - Vital Signs Vital signs: Vital Signs Temp 98.1 F 12/03/19 04:00 Pulse 68 12/03/19 11:00 Resp 22 12/03/19 11:00 BP 129/80 12/03/19 11:00 Pulse Ox 92 L 12/03/19 11:00 Intake & Output 12/02/19 12/03/19 12/03/19 18:59 06:59 18:59 Intake Total 9859 157 2051 Output Total 1100 1275 400 Balance 760 -435 600 Weight 89.5 kg Intake: IV 1460 200 80 .9 60 200 80 Intake, IV Titration 160 80 Amount Sodium Chloride 0.9% 1, 160 80 000 ml @ 80 mls/hr IV . [id number] JAKE Rx#:[id number] Oral 400 480 840 Output: Urine 1100 1275 400 Other: Voiding Method Indwelling Catheter Urinal Urinal # Voids 0 0 ABP, PAP, CO, CI - Last Documented Arterial Blood Pressure 129/60 - Exam General appearance: Revealed a 64-year-old white male pleasant in no distress. HET: Head is normocephalic and atraumatic. Neck: Supple without lymphadenopathy. No neck masses, no JVD, no stridor. Heart: Normal S1 S2. Regular rate and rhythm. Lungs: Clear throughout no crackles or rhonchi or wheezes. Abdomen: Obese soft nontender no megaly no rebound no guarding. Extremities: Normal skin color and turgor. No cyanosis, rash, ulceration, clubbing, or edema. Bilateral groin incision sites without any bleeding, no hematoma noted. Palpable bilateral DP pulses. Able to freely move bilateral lower extremities Neurological: No focal deficits. Strength and sensation are grossly intact. Psychiatric: Normal mood affect and normal mental status examination. Skin: No rashes. - Labs CBC & Chem 7: 12/03/19 08:03 12/03/19 06:23 Labs: Abnormal Lab Results - Last 24 Hours (Table) 12/02/19 12/03/19 Range/Units 15:42 06:23 Sodium 135 L 136 L (137-145) mmol/L Glucose 103 H (74-99) mg/dL Assessment and Plan Assessment: #1. Asymptomatic, infrarenal, 7.3 cm saccular AAA, status post percutaneous endovascular aortic repair with [place] device and ultrasound-guided bilateral common femoral artery access, postoperative day #1 with a relatively uneventful postoperative course. #2. Chronic history of smoking, [id number]-pkbp smoking history #3. History of COPD, not oxygen dependent at baseline #4. Hypertension #5. History of calcified pulmonary nodules throughout the lungs likely related to an old granulomatous disease #6. Chronic history of daily EtOH use, patient consumes 5-6 beers on a daily basis, we will initiate CIWA protocol #7. Previous history of myocardial infarction Recommendation: Patient will be seen by vascular surgery, and he will likely be discharged home today. Patient is to resume home meds, We will follow when necessary. Time with Patient: Less than 30
== END 2019-12-03 12:27 | disposition home or self-care (01) | DRG 269 ==
LOC: 2ORMAIN 10:19 → 2SICU 12:52
PROVIDERS: ADMIT Surgery; ATTEND Surgery
PROC: 04V03DZ Restriction of Abdominal Aorta with Intraluminal Device, Percutaneous Approach (ICD-10-PCS; principal; 2019-12-02 11:15)
DX: I71.4 Abdominal aortic aneurysm, without rupture (principal); J44.9 Chronic obstructive pulmonary disease, unspecified; R91.8 Other nonspecific abnormal finding of lung field; F17.210 Nicotine dependence, cigarettes, uncomplicated; I10 Essential (primary) hypertension; Z82.49 Family history of ischemic heart disease and other diseases of the circulatory system; I25.2 Old myocardial infarction; Z80.9 Family history of malignant neoplasm, unspecified; Z79.899 Other long term (current) drug therapy; Z88.0 Allergy status to penicillin
CPT/HCPCS: 34705; 80048; 85025; 85347; 86850; 86900; 86901

== ENCOUNTER → 2020-01-20 | Outpatient (CLI) | payer BC ==
--- NOTE | 2020-01-20 10:47 | CT ---
EXAMINATION TYPE: CT angio abdomen pelvis DATE OF EXAM: 01/20/2020 COMPARISON: CTA aorta November 22, 2019 HISTORY: Abdominal aortic aneurysm without rupture, recent repair CT DLP: 1411.2 mGycm, Automated Exposure Control for Dose Reduction was Utilized. CONTRAST: CTA scan of the abdomen and pelvis is performed without oral and without and with IV Contrast, patien t injected with 100 mL of Isovue 370. Aneurysm protocol with 3-D reconstruction images created on a [employer] workstation and reviewed. FINDINGS: VASCULAR: There is no stent graft beginning at level of celiac artery just below diaphragm. This exte nds into the common iliac arteries bilaterally. Patent celiac artery and SMA are noted. Patent bilate ral single renal arteries. Probable occluded [place] with retrograde filling. Postcontrast images show carty ccessful opacification of the stent graft. Delayed postcontrast images show no suspicious opacificati on outside stent graft to suggest endoleak. Persistent large eccentric AAA measuring 7.9 cm transvers juan axial image 41, I get similar measurement on prior study axial image 88. LUNG BASES: Redemonstration of a few small scattered calcified nodules are granulomas in the lung bas es. LIVER/GB: No significant abnormality is appreciated. PANCREAS: No significant abnormality is seen. SPLEEN: A few Calcifications scattered throughout the spleen. ADRENALS: No significant abnormality is seen. KIDNEYS: No significant abnormality is seen. BOWEL: Diverticula in the left and sigmoid colon. PROSTATE/SEMINAL VESICLES: No gross abnormality seen. LYMPH NODES: No greater than 1cm abdominal or pelvic lymph nodes are appreciated. OSSEOUS STRUCTURES: Multilevel spurring in the spine. Transitional type vertebra sacralized on the ri ght. OTHER: No significant additional abnormality is seen. IMPRESSION: New abdominal aortobiiliac stent graft. Stable 7.9 cm eccentric ruby aneurysm distal ab dominal aorta. Patency of the stent graft without CTA evidence for endoleak.
== END | disposition home or self-care (01) ==
LOC: RADCTMAIN 08:42
PROVIDERS: ATTEND Surgery
DX: I71.4 Abdominal aortic aneurysm, without rupture (principal); Z95.828 Presence of other vascular implants and grafts
CPT/HCPCS: 74174; Q9967

== ENCOUNTER → 2021-04-16 | Outpatient (CLI) | payer MEDICARE ==
[2021-04-16 12:03] LABS: ALT 37 U/L (4-49); AST 35 U/L (17-59); African American GFR (CKD) >90 (>60 ml/min/1.73 sqM); Albumin 4.3 g/dL (3.5-5.0); Albumin/Globulin Ratio 1.4; Alkaline Phosphatase 76 U/L (38-126); Anion Gap 7 mmol/L; Blood Urea Nitrogen 20 mg/dL (9-20); Calcium 9.1 mg/dL (8.4-10.2); Carbon Dioxide 27 mmol/L (22-30); Chloride 102 mmol/L (98-107); Glucose 103 mg/dL (74-99); Magnesium 2.3 mg/dL (1.6-2.3); Non-African American GFR(CKD) 79 (>60 ml/min/1.73 sqM); Potassium 4.8 mmol/L (3.5-5.1); Sodium 136 mmol/L (137-145); Total Bilirubin 1.1 mg/dL (0.2-1.3); Total Protein 7.3 g/dL (6.3-8.2)
--- NOTE | 2021-04-16 13:27 | CT ---
CTA abdomen and pelvis with contrast. HISTORY: Evaluate EVAR COMPARISON: 01/20/2020. TECHNIQUE: Multiple axial images were obtained through the abdomen and pelvis following uneventful ad ministration of nonionic IV contrast. The exam was performed according to the CTA protocol. Coronal a nd sagittal reconstructions are generated and reviewed. Postprocessing was performed. FINDINGS: Multiple sub-6 mm pulmonary nodules are identified in the lung bases. There were seen previously and are stable. The gallbladder is normal and there are no gallstones. Biliary ductal dilatation. Gallbladder wall th ickening, distention or pericholecystic fluid. No focal masses are seen within the liver, pancreas, spleen or adrenal glands. The kidneys excrete contrast probably symmetrically and there is no solid renal mass or hydronephrosi s. There is a stent graft within the abdominal aorta extending into the common iliac arteries bilaterall y. Again identified is an eccentric kake aneurysmal dilatation of the distal abdominal aorta which measures 6.875 cm in transverse dimension. It is somewhat smaller than was seen on the prior study. T here is no evidence of endoleak. There is no retroperitoneal hemorrhage. The celiac, SMA and renal arteries are patent bilaterally. The bowel loops are normal in caliber and there is no evidence of obstruction. No inflammatory change s are identified in the mesentery or bowel wall. There is no free intraperitoneal air or fluid. There is no pelvic mass, free fluid, abscess or adenopathy. The osseous structures are intact. IMPRESSION: Postsurgical changes of an aortic stent graft. There is no evidence of endoleak. The distal kake ab dominal aortic aneurysm is slightly smaller in size than seen previously. No new abnormalities are se en.
[2021-04-16 15:15] LABS: HCT 42.3 % (39.6-50.0); HGB 14.2 g/dL (13.0-17.0); MCH 31.3 pg (27.0-32.0); MCHC 33.6 g/dL (32.0-37.0); MCV 93.2 fL (80.0-97.0); Mean Platelet Volume 11.6 fL (9.5-12.2); Platelet Count 173 X 10*3/uL (140-440); RBC 4.54 X 10*6/uL (4.40-5.60); RDW 12.2 % (11.5-14.5); WBC 5.57 X 10*3/uL (4.50-10.00)
[2021-04-16 21:32] LABS: Chol/HDL Ratio 3.06 Ratio; LDL Cholesterol,Calculated 65.2 mg/dL (0.0-131.0)
== END | disposition home or self-care (01) ==
LOC: RADCTMAIN 10:55
PROVIDERS: ATTEND Internal Medicine Clinical Cardiac Electrophysiology
DX: I71.4 Abdominal aortic aneurysm, without rupture (principal); I10 Essential (primary) hypertension; E78.5 Hyperlipidemia, unspecified; Z95.828 Presence of other vascular implants and grafts
CPT/HCPCS: 84481; 80061; 80053; 84443; 83735; 85027; 74174; Q9967

== ENCOUNTER → 2023-05-29 | Outpatient (CLI) | payer MEDICARE ==
[2023-05-29 07:11] LABS: African American GFR (CKD) 69 (>60 ml/min/1.73 sqM); Blood Urea Nitrogen 14 mg/dL (9-20); Non-African American GFR(CKD) 60 (>60 ml/min/1.73 sqM)
--- NOTE | 2023-05-29 14:38 | CT ---
EXAMINATION TYPE: CT angio abdomen CT DLP: 947.3 mGycm, Automated exposure control for dose reduction was used. DATE OF EXAM: 05/29/2023 7:40 AM COMPARISON: CT angiogram abdomen 04/16/2021. . CLINICAL INDICATION:Male, 67 years old with history of I71.20 THORACIC AORTIC ANEURYSM, WITHOUT RUPTU RE,; PHH, aortic aneurysm with stent TECHNIQUE: Multiple thin slice sub-millimeter images were obtained after administration of contrast. 3-D reconstructed images and maximum intensity projection images were obtained. CT angio abdomen CT Contrast: Contrast used:100 mL of Isovue 370 with IV Contrast, Oral contrast used: None FINDINGS: CTA Abdomen and pelvis: Two part aneurysm stent grafts are present. The abdominal aorta demonstrates aortoiliac metallic mesh stent graft for treatment of abdominal aorta and another bifurcated mesh st ent Is seen in the common iliac artery aneurysms. Atherosclerotic plaquing is identified within the abdominal aorta. The origins of the superior mesenteric artery, renal arteries, and celiac axis are patent. Stent graft containment of on iliac artery aneurysms is noted. The inferior mesenteric arter y is not clearly identified The 3-D reconstructed images confirm the findings seen on the 2-D images from LOWER CHEST: No evidenc e of focal consolidation, pneumothorax or pleural effusion. Numerous granuloma in the spleen. Spleen is otherwise unremarkable. Liver, pancreas, stomach and bindu l are unremarkable. Numerous calcified granulomata are present in the lung bases. PELVIS BLADDER: Unremarkable REPRODUCTIVE: Unremarkable. IMPRESSION 1. No evidence of vascular occlusion with exception of perhaps the inferior mesenteric artery. 2. Metallic mesh stent graft is well seated in the upper abdominal aorta and aortoiliac stent grafts are well seated above and below the bifurcation
== END | disposition home or self-care (01) ==
LOC: RADCTMAIN 06:21
PROVIDERS: ATTEND Internal Medicine Clinical Cardiac Electrophysiology
DX: I71.20 Thoracic aortic aneurysm, without rupture, unspecified (principal); I71.40 Abdominal aortic aneurysm, without rupture, unspecified; Z95.828 Presence of other vascular implants and grafts
CPT/HCPCS: 82565; 84520; 74175; 36415; Q9967

== ENCOUNTER → 2024-03-11 | Outpatient (CLI) | payer MEDICARE ==
--- NOTE | 2024-03-13 21:42 | CTL ---
EXAMINATION TYPE: CT Low Dose Lung DATE OF EXAM: 03/11/2024 8:35 AM COMPARISON: 04/05/2018 CLINICAL INDICATION: Male, 68 years old with history of Z87.891 personal hx tobacco use, Personal hx nicotine dependence, former smoker, was 1.5 ppd x 50 years, hx COPD., Lung cancer screening, History of tobacco use. TECHNIQUE: Low dose computed tomography scan was performed through the chest at 1 mm thick sections a nd reconstructed images in the coronal plane at 1 mm thick sections. Contrast used: mL of , (none if empty) Oral contrast used: (none if empty) CT DLP: 142.70 mGycm, Automated exposure control for dose reduction was used. CT CTDI: 3.5 mGy, Automated exposure control for dose reduction was used. SCREENING VISIT: Initial CT DIAGNOSTIC QUALITY: Satisfactory FINDINGS: LUNG NODULES: None. Note is made of multiple benign-appearing bilateral calcified granuloma LUNGS: COPD: Severity: None Fibrosis: Severity: None Lymph nodes: Scattered small calcified lymph nodes within the mediastinum and hilum Other findings: There is consolidation extending from the left hilar region. This is new. RIGHT PLEURAL SPACE: Effusion: None Calcification: None Thickening: None Pneumothorax: None LEFT PLEURAL SPACE: Effusion: None Calcification: None Thickening: None Pneumothorax: None HEART: Other: Ascending thoracic aorta at the level the main pulmonary artery measures 4.5 cm. The main pul monary artery at the bifurcation measures2.4 cm. Heart Size: Normal Coronary calcification: Mild Pericardial effusion: None OTHER FINDINGS: Upper abdomen: Normal Bony thorax: Normal Supraclavicular region: Normal IMPRESSION: 1. Consolidation in the medial posterior left lower lobe. Short-term follow-up in 3 months is recomme nded. Underlying mass is not excluded. 2. Benign-appearing calcified lymph nodes and calcified granuloma within the lung campa. No suspicio us nodules. 3. Ascending thoracic aortic aneurysm measuring 4.[address] CHEST RECOMMENDATION: Follow-up CT chest [address] LUNG RAD: Lung-Rad 3 [facility], , 03/13/2024 9:40 PM
== END | disposition home or self-care (01) ==
LOC: RADCTMAIN 07:58
PROVIDERS: ATTEND Internal Medicine
DX: Z12.2 Encounter for screening for malignant neoplasm of respiratory organs (principal); I71.21 Aneurysm of the ascending aorta, without rupture; I89.8 Other specified noninfective disorders of lymphatic vessels and lymph nodes; J44.9 Chronic obstructive pulmonary disease, unspecified; J84.10 Pulmonary fibrosis, unspecified; Z87.891 Personal history of nicotine dependence
CPT/HCPCS: 71271

== ENCOUNTER → 2024-06-14 | Outpatient (CLI) | payer MEDICARE ==
[2024-06-14 10:07] LABS: African American GFR (CKD) 85 (>60 ml/min/1.73 sqM); Blood Urea Nitrogen 17 mg/dL (9-20); Non-African American GFR(CKD) 74 (>60 ml/min/1.73 sqM)
--- NOTE | 2024-06-14 12:08 | CT ---
EXAMINATION TYPE: CT chest w con DATE OF EXAM: 06/14/2024 COMPARISON: Most recent CT March 11, 2024 CLINICAL INDICATION: Male, 68 years old with history of R91.8 ABNORMAL FINDING OF LUNG FIELD, HX OF H TN TECHNIQUE: CT scan of the thorax is performed following with IV Contrast, patient injected with 100 ml mL of Isovue 300. CT DLP: 366.9 mGycm. Automated Exposure Control for Dose Reduction was Utilized. FINDINGS: LUNGS: Scattered small bilateral calcified nodules or benign granulomas are seen. There is new focal consolidation/atelectasis along the posterior aspect of the lingula. There is resolution of prior inf erior left lower lobe consolidation/atelectasis. Right lung remains clear. No pleural effusion or pne umothorax seen bilaterally. HEART: Size within normal limits. Moderate coronary artery calcifications present. MEDIASTINUM: There are persistent prominent but calcified bilateral hilar and mediastinal lymph nodes . No pericardial effusion is seen. OTHER: No additional significant abnormality is seen. IMPRESSION: Evidence of old granulomatous disease redemonstrated. Resolved basilar left lower lobe co nsolidation/atelectasis. There is however new posterior lingular acute consolidation/atelectasis. Cor relate clinically for possible acute infection. [facility], , 06/14/2024 12:05 PM
== END | disposition home or self-care (01) ==
LOC: RADCTMAIN 09:18
PROVIDERS: ATTEND Internal Medicine
DX: R91.8 Other nonspecific abnormal finding of lung field (principal); I10 Essential (primary) hypertension
CPT/HCPCS: 82565; 84520; 71260; Q9967